=== PATIENT | female | born 1975 | race Caucasian/White ===

== ENCOUNTER → 2024-04-16 12:29 | Outpatient (REF) | payer BC, SELFPAY | LOC: RAD 12:29 | PROVIDERS: ATTENDING PHYSICIAN Physician Assistant Medical | DX: R10.11 Right upper quadrant pain (principal) | CPT/HCPCS: 74176 ==

== ENCOUNTER 2025-06-19 06:57 | Day surgery (SDC) | payer BC, SELFPAY ==
[2025-06-19 07:17] VITALS: BMI 42.8
[2025-06-19 07:18] VITALS: BP 181/93
[2025-06-19 09:54] VITALS: BP 154/53
[2025-06-19 10:09] VITALS: BP 137/55
--- NOTE | 2025-06-19 10:20 | ITS.CL.IMPLP ---
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
Implant Loop
Procedure Report:
Date of Procedure: June 19, 2025.
Procedure: Insertable Loop Recorder Explant and Insertable Loop Implant.
Indication: Embolic stroke of unknown source. Loop at the end of service.
Performing physician: Rahul Yun MD, [facility].
Today's Implant: [employer]tronic; Reveal LINQII; Model# LNQ22; Serial# [id number].
Explant: Medtronic LINQ; Model: LNQ11; Serial# [id number] (implanted on 03/19/2021.
Moderate Sedation: 20 minutes of moderate sedation was utilized. An independent site medical director was present to assist with and help manage the patient's level of consciousness and physiologic status.
Technique: A time out was performed per protocol. Fluoroscopy was used to locate the device as it was not palpable. The overlying tissue was marked. The patient was prepped and draped in the usual fashion. The patient was administered moderate
sedation. Local anesthetic was applied to the left prepectoral subcutaneous tissue. An incision was made over the superior aspect of the device. Dissection was carried to the capsule. The capsule was entered. The old device was explanted. The
pocket appeared normal. Hemostasis was excellent. The pocket was irrigated saline. Using the insertion kit the device was implanted subcutaneously and directed towards the nipple. The incision was closed with 4-0 Monocryl suture. The skin was
closed with steri-strips. The estimated blood loss was less than 0.5 mL. There were no complications. Fluoroscopy: time 0.0 minutes and DAP 0.0498 GyCM2. There were no complications. R waves measured 0.38 mV and P waves were visible.
Final Programming: Detections: Afib, tachy at 160 bpm, criselda at 30 bpm, pause at 3 sec.
Conclusion: Uncomplicated insertable loop explant and implant implant.
Recommendation: Routine post-insertable loop care. The device is MRI conditional without a waiting period and up to 3 Cherrie.
cc: ROBERT Rodriguez and Darnell Galvan MD.
== END 2025-06-19 10:46 | disposition home or self-care (01) ==
LOC: CATH 06:57
PROVIDERS: ATTENDING PHYSICIAN Internal Medicine Cardiovascular Disease; FAMILY PHYSICIAN Physician Assistant Medical; OTHER PHYSICIAN Internal Medicine
DX: Z09 Encounter for follow-up examination after completed treatment for conditions other than malignant neoplasm (principal); Z86.73 Personal history of transient ischemic attack (TIA), and cerebral infarction without residual deficits; I10 Essential (primary) hypertension; E66.01 Morbid (severe) obesity due to excess calories; Z68.42 Body mass index [BMI] 45.0-49.9, adult
CPT/HCPCS: 33285; C1764